=== PATIENT | female | born 1980 | race Native Hawaiian/Other Pacific Islander ===

== ENCOUNTER 2016-11-29 14:35 | Inpatient (IN) ==
[2016-11-29 15:11] LABS: URINE SOURCE CLEAN CATCH
[2016-11-29 15:20] LABS: MANUAL DIFF NEEDED? NO
[2016-11-29 15:22] LABS: BASO% 0.1 % (0.0-0.8); EOS# 0.04 X1000 (0.0-0.7); EOS% 0.4 % (0.0-10.0); HEMATOCRIT 37.9 % (37.0-47.0); HEMOGLOBIN 13.2 g/dL (12.0-16.0); IMM GRAN# 0.02 X1000 (0.0-0.04); IMM GRAN% 0.2 % (0.0-0.5); LYMPH# 1.01 X1000 (1.2-3.4); LYMPH% 10.2 % (20.5-51.1); MCHC 34.8 g/dL (33-37); MONO# 0.58 X1000 (0.11-0.59); MONO% 5.9 % (1.7-9.3); NEUT% 83.2 % (42.2-75.2); PLT 191 X1000 (130-400); RBC 4.12 XMIL (4.2-5.4)
[2016-11-29 15:29] LABS: BILIRUBIN URINE NEGATIVE (NEGATIVE); BLOOD URINE NEGATIVE (NEGATIVE); CLARITY CLEAR (CLEAR); COLOR YELLOW; GLUCOSE URINE NEGATIVE (NEGATIVE); LEUKOCYTES URINE 2+ (NEGATIVE); NITRITE URINE POSITIVE (NEGATIVE); PROTEIN URINE TRACE mg/dL (NEGATIVE); URINE MICROSCOPIC NEEDED? YES; UROBILINOGEN URINE NORMAL
[2016-11-29 15:31] LABS: URINE CAST NONE SEEN /LPF; URINE CRYSTAL NONE SEEN /HPF; URINE EPITHELIAL CELLS <10 /HPF (<10)
[2016-11-29 15:48] LABS: AGAP 12; ALBUMIN 4.3 g/dL (3.5-5.0); ALKALINE PHOSPHATASE 60 U/L (32-104); BUN 15 mg/dL (8-22); CALCIUM 8.7 mg/dL (8.8-10.2); CHLORIDE 98 mmol/L (98-107); COSMO 265; GOT 12 U/L (10-30); GPT 7 U/L (10-36); POTASSIUM 3.5 mmol/L (3.5-5.1); SODIUM 131 mmol/L (136-145); TCO2 22 mmol/L (25-35); TOTAL PROTEIN 7.2 g/dL (6.3-8.3)
--- NOTE | 2016-11-29 16:22 | PROVIDER DOCUMENTATION ---
HPI-Abdominal Pain/GI Problem - General Chief Complaint: Abdominal Pain Stated Complaint: "POSS ABSCESS ON COLON" Time Seen by Provider: 11/29/16 16:02 Source: patient Allergies/Adverse Reactions: Patient Allergies Allergy/AdvReac Type Severity Reaction Status Date / Time No Known Allergies Allergy Verified 11/22/15 18:05 Home Medications: Home Medication List Medication Instructions Recorded Confirmed Last Taken Type Ondansetron [Zofran] 4 mg PO Q6H PRN PRN #20 tablet 11/22/15 Unknown Rx - History of Present Illness-ABD Nature of Presenting Problems: 35 y/o F presents to the ED with c/o RLQ pain x 6 days, worse in last 12 hours. Pt states was seen at urgent care earlier today for it, was sent for CT scan and sent here for possible abscess. Denies any N/V/D, urinary sxs. Review of Systems - Adult - REVIEW OF SYSTEMS - ADULT Constitutional: reports: no symptoms reported. denies: chills, fever Eyes: reports: no symptoms reported. denies: blurred vision, double vision Ears, Nose, Mouth & Throat: reports: no symptoms reported. denies: ear pain, nose pain Cardiovascular: reports: no symptoms reported. denies: chest pain, palpitations Respiratory: reports: no symptoms reported. denies: dyspnea on exertion, shortness of breath Gastrointestinal: reports: see HPI, abdominal pain. denies: constipation, diarrhea, nausea, vomiting Genitourinary: reports: no symptoms reported. denies: dysuria, frequency Musculoskeletal: reports: no symptoms reported. denies: joint pain, joint swelling Integumentary: reports: no symptoms reported. denies: nail changes, rash Neurological: reports: no symptoms reported. denies: numbness, paresthesia Psychiatric: reports: no symptoms reported Endocrine: reports: no symptoms reported. denies: cold intolerance, heat intolerance Hematologic/Lymphatic: reports: no symptoms reported. denies: easy bruising, prolonged bleeding Allergic/Immunologic: reports: no symptoms reported All Other Systems: Reviewed and Negative Past History - Adult - PAST MEDICAL HISTORY-ADULT Review of Records: reports: Nursing Assessment Review, Medications Reviewed - SOCIAL HISTORY Smoking: denies Alcohol Use Frequency: once a month Number of drinks per typical drinking period:: 2 drinks Physical Exam-General - PHYSICAL EXAM-ADULT Initial Vital Signs Reviewed: Yes - CONSTITUTIONAL General Appearance: appears well, alert, mild distress - EYES Eyes: pink conjunctivae - HEAD, EARS, NOSE, MOUTH & THROAT HENMT: normocephalic/atraumatic, moist mucous membranes - NECK Neck: normal inspection - RESPIRATORY Respiratory: lungs clear, normal breath sounds. negative: crackles, rales, rhonchi, stridor, wheezing - CARDIOVASCULAR Cardiovascular: regular rate, rhythm. negative: bradycardia, tachycardia - GASTROINTESTINAL (ABDOMEN) Abdominal Exam: normal bowel sounds, soft, tenderness (RLQ, LLQ), McBurney's point tenderness. negative: distended, guarding, rigid, Gautam's sign - MUSCULOSKELETAL Back Exam: normal inspection, no CVA tenderness Extremity: normal gait - NEUROLOGIC Neurologic: negative: aphasia - PSYCHIATRIC Psych/Mental Status: normal mood/affect, normal thought content, normal thought process, oriented x 3 Progress - PLAN OF CARE/RESULTS Progress/Plan/Lab Results: Vital Signs - 8 hr 11/29/16 14:51 Temperature 99.0 F Pulse Rate 78 Respiratory Rate 18 Blood Pressure 112/73 O2 Sat by Pulse Oximetry 98 Laboratory Results - last 24 hr 11/29/16 11/29/16 11/29/16 14:58 15:04 15:15 WBC 9.87 RBC 4.12 L Hgb 13.2 Hct 37.9 MCV 92.0 MCH 32.0 H MCHC 34.8 RDW Std Deviation 11.8 Plt Count 191 MPV 10.0 Immature Gran % (Auto) 0.2 Neut % (Auto) 83.2 H Lymph % (Auto) 10.2 L [place] % (Auto) 5.9 Eos % (Auto) 0.4 Baso % (Auto) 0.1 Immature Gran # (Auto) 0.02 Neut # (Auto) 8.21 H Lymph # (Auto) 1.01 L [place] # (Auto) 0.58 Eos # (Auto) 0.04 Baso # (Auto) 0.01 Sodium Potassium Chloride Carbon Dioxide Anion Gap BUN Creatinine Estimated GFR/1.73 m2 BUN/Creatinine Ratio Glucose Calculated Osmolality Calcium Total Bilirubin AST ALT Alkaline Phosphatase Total Protein Albumin Globulin Albumin/Globulin Ratio Urine Source CLEAN CATCH Urine Color YELLOW Urine Clarity CLEAR Urine pH 7.0 Ur Specific [place] 1.010 Urine Protein TRACE A Urine Ketones NEGATIVE Urine Blood NEGATIVE Urine Nitrite POSITIVE A Urine Bilirubin NEGATIVE Urine Urobilinogen NORMAL Urine Microscopic RBC Not Reportable Urine WBC 2+ A Urine Microscopic WBC 10-20 A Ur Epithelial Cells <10 Urine Crystals NONE SEEN Urine Bacteria 1+ Urine Casts NONE SEEN Urine Yeast NONE SEEN Urine Glucose NEGATIVE Urine Test NEGATIVE 11/29/16 15:15 WBC RBC Hgb Hct MCV MCH MCHC RDW Std Deviation Plt Count MPV Immature Gran % (Auto) Neut % (Auto) Lymph % (Auto) [place] % (Auto) Eos % (Auto) Baso % (Auto) Immature Gran # (Auto) Neut # (Auto) Lymph # (Auto) [place] # (Auto) Eos # (Auto) Baso # (Auto) Sodium 131 L Potassium 3.5 Chloride 98 Carbon Dioxide 22 L Anion Gap 12 BUN 15 Creatinine 0.7 Estimated GFR/1.73 m2 > 60 BUN/Creatinine Ratio 21 Glucose 119 H Calculated Osmolality 265 Calcium 8.7 L Total Bilirubin 0.80 AST 12 ALT 7 L Alkaline Phosphatase 60 Total Protein 7.2 Albumin 4.3 Globulin 3.0 Albumin/Globulin Ratio 1.0 Urine Source Urine Color Urine Clarity Urine pH Ur Specific [place] Urine Protein Urine Ketones Urine Blood Urine Nitrite Urine Bilirubin Urine Urobilinogen Urine Microscopic RBC Urine WBC Urine Microscopic WBC Ur Epithelial Cells Urine Crystals Urine Bacteria Urine Casts Urine Yeast Urine Glucose Urine Test Orders Category Date Time Status CBC WITH DIFF [HEME] Stat Lab 11/29/16 15:15 Completed CMP [COMPREHENSIVE METABOLIC PANEL] [CHEM] Stat Lab 11/29/16 15:15 Completed TEST-URINE [PREG] Stat Lab 11/29/16 15:04 Completed UA [URINALYSIS PL] [URINALYSIS] Stat Lab 11/29/16 14:58 Completed URINE MICROSCOPIC [URINALYSIS] Stat Lab 11/29/16 14:58 Completed Discuss[address] pt with Dr. Parish; he agreed with admission plan. Discussed admission with pt. Result Diagrams: 11/29/16 15:15 11/29/16 15:15 - CT/MRI 1 CT Study: Abdomen, Pelvis Impression: See EMR Report - CONSULTS/PCP/HOSPITALIST Notification #1 *Consult/PCP/Hospitalist*: Dr. Queen Time Discussed: 16:45 Reason/Comments: pericecal abscess Consult Disposition: Will see in ED, Admit (to [facility]), other (Get CT scan and call back) Departure - Departure Time of Disposition Decision: 18:38 DIAGNOSIS: Pericecal abscess Disposition: ADMITTED INPATIENT 09 Certified Medical Emergency: Emergent Condition: Stable Referrals and Follow-Ups: Geoff Escobedo MD [Primary Care Provider] - Attestation - Physician/ VENKAT Attestation Patient care was provided by Advanced Practice Provider:: Yes Advanced Practice Provider:: Shraddha Vo Advanced Practice Provider documentation review:: The Mid-level provider documentation, treatment plan and medical decision making was reviewed by the physician who agrees with all treatment and medical decision making by the MLP.
[2016-11-29] MEDS ORDERED: ZOFRAN IV PRN (18:39)
[2016-11-29] MEDS ORDERED: MORPHINE IV PRN ×3 (18:39→20:00)
[2016-11-29] MEDS ORDERED: ZOSYN 3.375 GM/NS 3.375 GM/50 ML IVPB IV ONE (18:40)
[2016-11-29] MEDS: NS 1,000 ML IV ONE (18:53)
--- NOTE | 2016-11-29 19:18 | HISTORY AND PHYSICAL ---
CHIEF COMPLAINT: Right lower quadrant pain. HISTORY OF PRESENT ILLNESS: This is a 35-year-old white female who reports discomfort dating back for 5 days. This morning about 3 a.m. it significantly worsened and she went to urgent care. They sent her to the imaging center for a CT which showed a possible pericecal abscess. Apparently the appendix did not look terribly abnormal on the CT scan. Denies any similar previous illness. Denies any fever. Denies any history of inflammatory bowel disease. MEDICATIONS: She takes Zofran at home. ALLERGIES: She has no known drug allergies. PAST SURGICAL HISTORY: Denies any previous surgery. SOCIAL HISTORY: He denies smoking. Drinks alcohol once a month. FAMILY HISTORY: Unknown. REVIEW OF SYSTEMS: Negative for chills and fever. Negative for vision problems. No ENT issues. Negative for chest pain or palpitations. No shortness of breath. GI: Negative for diarrhea. She does report some nausea. : Denies dysuria. Musculoskeletal: Negative for pain. Integumentary: Negative for rash. Neurologic: No paresthesia, numbness, headaches, or seizures. Psychiatric: Negative. Endocrine: No cold or heat intolerance. Hematologic: Negative for bruising or bleeding. PHYSICAL EXAMINATION: VITAL SIGNS: She is afebrile. Heart rate 62, respiratory rate 20, blood pressure 90/60. NECK: No cervical adenopathy. LUNGS: Bilateral breath sounds. HEART: Regular rate and rhythm. ABDOMEN: Soft. She is tender in the right lower quadrant. Psoas sign is negative. EXTREMITIES: No peripheral edema. NEUROLOGIC: She is awake and alert. LABS: White count is 9,800, hemoglobin 13.2. Urinalysis is nitrite urine positive. CT scan suggested pericecal abscess but no evidence of appendiceal involvement. ASSESSMENT: 1. Pericecal abscess. 2. Urinary tract infection. PLAN: Admission, IV Zosyn. We will follow her with serial abdominal exams. cc: Sanjay Queen MD
[2016-11-29] MEDS ORDERED: NORCO-10 PO ONE (19:49)
[2016-11-30] MEDS: NS 1,000 ML IV ONE (00:46)
[2016-11-30] MEDS: ZOSYN 3.375 GM/NS 3.375 GM/50 ML IVPB IV SCH ×4 (00:48→22:17)
[2016-11-30 06:37] LABS: MANUAL DIFF NEEDED? NO
[2016-11-30 06:47] LABS: BASO% 0.2 % (0.0-0.8); EOS# 0.07 X1000 (0.0-0.7); EOS% 1.6 % (0.0-10.0); HEMATOCRIT 33.3 % (37.0-47.0); HEMOGLOBIN 11.3 g/dL (12.0-16.0); LYMPH# 1.31 X1000 (1.2-3.4); LYMPH% 29.1 % (20.5-51.1); MCH 31.9 PG (27-31); MCHC 33.9 g/dL (33-37); MCV 94.1 FL (81-99); MONO% 8.9 % (1.7-9.3); NEUT% 60.2 % (42.2-75.2); PLT 180 X1000 (130-400); RBC 3.54 XMIL (4.2-5.4)
[2016-11-30 07:09] LABS: AGAP 10; BUN 11 mg/dL (8-22); CALCIUM 7.9 mg/dL (8.8-10.2); CHLORIDE 109 mmol/L (98-107); COSMO 282; POTASSIUM 3.9 mmol/L (3.5-5.1); SODIUM 142 mmol/L (136-145); TCO2 23 mmol/L (25-35)
[2016-11-30] MEDS: NS 1,000 ML IV SCH (22:16)
[2016-12-01] MEDS: ZOSYN 3.375 GM/NS 3.375 GM/50 ML IVPB IV SCH ×4 (04:10→22:28)
[2016-12-01] MEDS: NS 1,000 ML IV SCH ×4 (04:10→22:29)
[2016-12-01 06:42] LABS: MANUAL DIFF NEEDED? NO
[2016-12-01 06:45] LABS: BASO% 0.6 % (0.0-0.8); EOS% 2.9 % (0.0-10.0); HEMOGLOBIN 11.5 g/dL (12.0-16.0); LYMPH# 1.44 X1000 (1.2-3.4); LYMPH% 41.6 % (20.5-51.1); MCHC 33.8 g/dL (33-37); MCV 94.7 FL (81-99); MONO% 5.8 % (1.7-9.3); MPV 9.9 FL (7.4-10.4); NEUT% 49.1 % (42.2-75.2); PLT 182 X1000 (130-400); RBC 3.59 XMIL (4.2-5.4)
[2016-12-02] MEDS: NS 1,000 ML IV SCH (02:05)
[2016-12-02] MEDS: ZOSYN 3.375 GM/NS 3.375 GM/50 ML IVPB IV SCH ×2 (03:13→09:36)
[2016-12-02 08:11] VITALS: BP 98/58
--- NOTE | 2016-12-17 19:34 | DISCHARGE SUMMARY ---
ADMISSION DATE: 11/29/2016 DISCHARGE DATE: 12/02/2016 PRIMARY DISCHARGE DIAGNOSIS: Cecal diverticulitis. HOSPITAL COURSE: This is a 35-year-old, oriental female who reports a 5-day history of discomfort. The morning of admission she awakened significantly worse and went to Urgent Care and was sent for a CT scan which showed a pericecal abscess. The appendix did not appear to be involved. There were some other diverticulum noted. She was, therefore, treated as if she had cecal diverticulitis. She was placed on Zosyn. Over the course of the next few days she improved with a decrease in her white count, decrease in her pain. She was started on liquids and the diet was advanced. By 12/02 she was taking solid food, her bowels had moved, she was significantly less tender, and it was felt she could be discharged home on p.o. antibiotics. On 12/02 she was discharged home on Levaquin 500 mg daily, Flagyl 500 mg t.i.d., and she was given Ultram for pain. She will return to the office in a week for followup. cc: Sanjay Queen MD
== END 2016-12-02 14:00 | disposition home or self-care (01) ==
LOC: P.ED 14:35 → 4N 18:56
PROVIDERS: ADMIT Surgery; ATTEND Surgery